=== PATIENT | female | born 1970 | race Caucasian/White ===

== ENCOUNTER 2016-08-27 09:25 | Emergency (ER) | payer BC | END 2016-08-27 10:01 | disposition home or self-care (01) | LOC: ER 09:25 | DX: G51.0 Bell's palsy (principal); I10 Essential (primary) hypertension; J45.909 Unspecified asthma, uncomplicated; Z90.710 Acquired absence of both cervix and uterus; Z79.82 Long term (current) use of aspirin; Z79.899 Other long term (current) drug therapy; Z88.0 Allergy status to penicillin ==

== ENCOUNTER 2016-08-30 13:26 | Emergency (ER) | payer BC | END 2016-08-30 21:50 | disposition short-term general hospital (02) | LOC: ER 13:26 | DX: R29.810 Facial weakness (principal); R20.0 Anesthesia of skin; E87.6 Hypokalemia; K02.9 Dental caries, unspecified; R73.9 Hyperglycemia, unspecified; I10 Essential (primary) hypertension; E66.9 Obesity, unspecified; Z90.710 Acquired absence of both cervix and uterus; Z88.0 Allergy status to penicillin; Z90.49 Acquired absence of other specified parts of digestive tract; Z79.82 Long term (current) use of aspirin; Z79.899 Other long term (current) drug therapy; Z68.42 Body mass index [BMI] 45.0-49.9, adult | CPT/HCPCS: 36415; 96374 ==